=== PATIENT | female | born 1965 | race Caucasian/White ===

== ENCOUNTER → 2018-03-31 | Outpatient (CLI) | payer MEDICARE ==
--- NOTE | 2018-03-31 17:00 | CT ---
EXAMINATION TYPE: CT cervical spine wo con DATE OF EXAM: 03/31/2018 COMPARISON: 03/16/2008 HISTORY: Neck pain. CT DLP: 662 mGycm Automated exposure control for dose reduction was used. TECHNIQUE: CT scan of the cervical spine is obtained without contrast, axial images are obtained, sa gittal and coronal reformatted images are also reviewed. FINDINGS: There is some straightening of the lower cervical spine. There is narrowing of the disc spa jacky at C5-6 C6-7 with spurring of the endplates. Facet joints are intact. There is some facet hypertr ophic arthropathy at C3-4. The posterior elements are intact. Skull base is intact. IMPRESSION: Moderate spondylosis at C5-6 and C6-7. I do not see any significant spinal stenosis. No f racture. There is mild progression of the spur formation compared to old exam.
--- NOTE | 2018-03-31 17:03 | CT ---
EXAMINATION TYPE: CT lumbar spine wo con DATE OF EXAM: 03/31/2018 4:51 PM COMPARISON: 09/05/2007 HISTORY: Low back pain. Right leg numbness. CT DLP: 969 mGycm Automated exposure control for dose reduction was used. Unenhanced CT of the lumbar spine was performed. Bone and soft tissue window settings are submitted as well as coronal and sagittal reconstructions. The lumbar vertebra have fairly normal alignment. There is narrowing of disc spaces at L1-2 and L5-S1 with vacuum disc and spurring. There is a moderate posterior L1-2 disc herniation centrally and towa rds the right side. There is no compression fracture. Posterior elements are intact. I see no signifi cant narrowing of the spinal canal. There is developmentally adequate canal. There is no lumbar isiah janes mass. There is neural stimulator over the upper posterior lumbar spine. Visualized sacroiliac j oints appear intact. IMPRESSION: Spondylosis as above that has progressed at L5-S1 and fairly stable at L1-2 compared to old exam. No fracture seen. Chronic posterior right-sided L1-2 disc herniation. Small posterior L5-S1 disc herniat ion is appears slightly smaller than old exam.
== END | disposition home or self-care (01) ==
LOC: RADCTMAIN 16:21
PROVIDERS: ATTEND Psychiatry & Neurology Neurology
DX: M47.812 Spondylosis without myelopathy or radiculopathy, cervical region (principal); M51.27 Other intervertebral disc displacement, lumbosacral region; M47.817 Spondylosis without myelopathy or radiculopathy, lumbosacral region
CPT/HCPCS: 72125; 72131

== ENCOUNTER 2018-04-21 13:38 | Emergency (ER) | payer MEDICARE ==
[2018-04-21 13:51] VITALS: RESP 18
--- NOTE | 2018-04-21 15:04 | XR ---
EXAMINATION TYPE: XR Hip LT and AP Pelvis DATE OF EXAM: 04/21/2018 COMPARISON: NONE HISTORY: Pain in pelvis and left hip. TECHNIQUE: A single AP view of the pelvis is obtained. Two views of the left hip are obtained. FINDINGS: There is no acute fracture/dislocation evident in the pelvis. The sacroiliac joints appea r symmetric and unremarkable. There is mild axial joint space loss in both hips. Mild acetabular spur ring is present bilaterally. Stimulator device overlies left iliac crest. A few tiny left-sided pelvi c phleboliths are seen. Two views of left hip show no acute fracture or dislocation. No focal lytic or sclerotic lesion seen in the proximal left femur. The overlying soft tissue is unremarkable. IMPRESSION: There is no acute fracture or dislocation in the pelvis or left hip.
--- NOTE | 2018-04-21 15:34 | ED ---
General Adult HPI - General Chief complaint: Extremity Problem,Nontraumatic Stated complaint: feet swelling/leg pain Time Seen by Provider: 04/21/18 14:28 Source: patient, RN notes reviewed, old records reviewed Mode of arrival: EMS Limitations: no limitations - History of Present Illness Initial comments: This is a 52-year-old female to the ER for evaluation. The patient presents for evaluation of left hip Pain knee pain hamstring pain radiating into her back. Patient does suffer from chronic pain. States no modifying factors for symptoms, she woke with symptoms today. She also admits to mild swelling in her foot and ankle area. Denies trauma. No loss of bowel or bladder and no other injury - Related Data Home Medications Medication Instructions Recorded Confirmed Bbvtmkrkvs-HAA-Tnpqutm-Codeine 1 cap PO Q4H PRN 04/21/18 04/21/18 [Fiorinal w/Cod 06-825-91-30MG] Dextroamphetamine/Amphetamine 20 mg PO TID PRN 04/21/18 04/21/18 [Adderall] Ferrous Sulfate [Feosol] 325 mg PO DAILY 04/21/18 04/21/18 Ibuprofen [Motrin] 800 mg PO TID PRN 04/21/18 04/21/18 Omeprazole 20 mg PO BID PRN 04/21/18 04/21/18 PARoxetine [Paxil] 20 mg PO HS 04/21/18 04/21/18 oxyCODONE HCL/ACETAMINOPHEN 1 tab PO TID PRN 04/21/18 04/21/18 [Percocet 10-325 mg] Allergies Allergy/AdvReac Type Severity Reaction Status Date / Time dexamethasone [From Decadron] Allergy Unknown Verified 04/21/18 14:06 Sulfa (Sulfonamide Allergy Unknown Verified 04/21/18 14:06 Antibiotics) Review of Systems ROS Statement: Those systems with pertinent positive or pertinent negative responses have been documented in the HPI. ROS Other: All systems not noted in ROS Statement are negative. Past Medical History Past Medical History: COPD, GERD/Reflux Additional Past Medical History / Comment(s): chronic pain History of Any Multi-Drug Resistant Organisms: None Reported Past Surgical History: Back Surgery, Cholecystectomy Additional Past Surgical History / Comment(s): tongue Past Psychological History: No Psychological Hx Reported Smoking Status: Current every day smoker Past Alcohol Use History: None Reported Past Drug Use History: None Reported General Exam Limitations: no limitations General appearance: alert, in no apparent distress Head exam: Present: atraumatic, normocephalic, normal inspection Eye exam: Present: normal appearance, PERRL, EOMI. Absent: scleral icterus, conjunctival injection, periorbital swelling ENT exam: Present: normal exam, mucous membranes moist Neck exam: Present: normal inspection. Absent: tenderness, meningismus, lymphadenopathy Respiratory exam: Present: normal lung sounds bilaterally. Absent: respiratory distress, wheezes, rales, rhonchi, stridor Cardiovascular Exam: Present: regular rate, normal rhythm, normal heart sounds. Absent: systolic murmur, diastolic murmur, rubs, gallop, clicks GI/Abdominal exam: Present: soft, normal bowel sounds. Absent: distended, tenderness, guarding, rebound, rigid Extremities exam: Present: normal inspection, full ROM, normal capillary refill. Absent: tenderness, pedal edema, joint swelling, calf tenderness Back exam: Present: normal inspection Neurological exam: Present: alert, oriented X3, CN II-XII intact Psychiatric exam: Present: normal affect, normal mood Skin exam: Present: warm, dry, intact, normal color. Absent: rash Course Vital Signs 04/21/18 13:45 Temperature 99.3 F Pulse Rate 74 Respiratory 18 Rate Blood Pressure 111/55 O2 Sat by Pulse 95 Oximetry Medical Decision Making - Medical Decision Making 52 female positive left lower Shorty pain and swelling. Ultrasound and x-ray are negative. Patient does have pain medication home and can be discharged - Radiology Data Radiology results: report reviewed (xr left extremity negative for acute disease , ultrasound left lower extremity negative), image reviewed Disposition Clinical Impression: Left leg pain, Leg edema, left Disposition: HOME SELF-CARE Condition: Good Instructions: Leg Pain (ED) Is patient prescribed a controlled substance at d/c from ED?: No Referrals: Janessa Brambila MD [Primary Care Provider] - 1-2 days
--- NOTE | 2018-04-21 15:37 | US ---
EXAMINATION TYPE: US venous doppler duplex LE LT DATE OF EXAM: 04/21/2018 3:31 PM COMPARISON: NONE CLINICAL HISTORY: Pain. SIDE PERFORMED: Left TECHNIQUE: The lower extremity deep venous system is examined utilizing real time linear array sonog fred with graded compression, doppler sonography and color-flow sonography. VESSELS IMAGED: External Iliac Vein (EIV) Common Femoral Vein Deep Femoral Vein Greater Saphenous Vein * Femoral Vein Popliteal Vein Small Saphenous Vein * Proximal Calf Veins (* superficial vessels) Left Leg: Negative for DVT Grayscale, color doppler, spectral doppler imaging performed of the deep veins of the left lower extr emity. There is normal flow, compressibility, vascular waveforms. IMPRESSION: No ultrasound evidence for acute DVT in the left lower extremity.
[2018-04-21 16:10] VITALS: BP 116/62; PULSE 72; TEMP 98.9
== END 2018-04-21 16:10 | disposition home or self-care (01) ==
LOC: EC 13:38
DX: M79.605 Pain in left leg (principal); R60.0 Localized edema; M25.552 Pain in left hip; M25.562 Pain in left knee; G89.29 Other chronic pain; F17.200 Nicotine dependence, unspecified, uncomplicated; Z79.899 Other long term (current) drug therapy; Z88.2 Allergy status to sulfonamides; Z88.8 Allergy status to other drugs, medicaments and biological substances; Z98.890 Other specified postprocedural states
CPT/HCPCS: 73502; 99284

== ENCOUNTER 2018-10-04 13:41 | Emergency (ER) | payer MEDICARE ==
[2018-10-04 14:24] VITALS: RESP 18; TEMP 98.1
--- NOTE | 2018-10-04 14:24 | ED ---
General Adult HPI - General Stated complaint: DVT Time Seen by Provider: 10/04/18 13:45 Source: RN notes reviewed - History of Present Illness Initial comments: This is a 53-year-old female presents emergency Department complaining of right hip pain. 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 Patient denies any injury or trauma to that hip. Patient denies any previous symptoms that are similar. Patient denies any lower extremity pain on that side. Patient states she has a little bit of swelling to the lower leg. Patient denies any abdominal pain. Patient denies any back pain. Patient states the pain isn't there she stands on it or lays down flat if she goes to sit down or tries to stand up from a sitting position the pain is severe. - Related Data Home Medications Medication Instructions Recorded Confirmed Pugvjddouz-TEK-Luqcanb-Codeine 1 cap PO Q4H PRN 04/21/18 10/04/18 [Fiorinal w/Cod [id number]] Dextroamphetamine/Amphetamine 20 mg PO TID PRN 04/21/18 10/04/18 [Adderall] Omeprazole 20 mg PO BID PRN 04/21/18 10/04/18 PARoxetine [Paxil] 20 mg PO HS 04/21/18 10/04/18 oxyCODONE HCL/ACETAMINOPHEN 1 tab PO TID PRN 04/21/18 10/04/18 [Percocet 10-325 mg] Previous Rx's Medication Instructions Recorded Ketorolac [Toradol] 10 mg PO Q6HR #15 tab 10/04/18 Allergies Allergy/AdvReac Type Severity Reaction Status Date / Time dexamethasone [From Decadron] Allergy Unknown Verified 10/04/18 14:42 Sulfa (Sulfonamide Allergy Unknown Verified 10/04/18 14:42 Antibiotics) Review of Systems ROS Statement: Those systems with pertinent positive or pertinent negative responses have been documented in the HPI. ROS Other: All systems not noted in ROS Statement are negative. Past Medical History Past Medical History: COPD, GERD/Reflux Additional Past Medical History / Comment(s): chronic pain History of Any Multi-Drug Resistant Organisms: None Reported Past Surgical History: Back Surgery, Cholecystectomy Additional Past Surgical History / Comment(s): tongue Past Psychological History: No Psychological Hx Reported Smoking Status: Current every day smoker Past Alcohol Use History: None Reported Past Drug Use History: None Reported General Exam - General Exam Comments Initial Comments: GENERAL: Patient is well-developed and well-nourished. Patient is nontoxic and well- hydrated and is in mild distress. ENT: Neck is soft and supple. No significant lymphadenopathy is noted. Oropharynx is clear. Moist mucous membranes. Neck has full range of motion without eliciting any pain. EYES: The sclera were anicteric and conjunctiva were pink and moist. Extraocular movements were intact and pupils were equal round and reactive to light. Eyelids were unremarkable. PULMONARY: Unlabored respirations. Good breath sounds bilaterally. No audible rales rhonchi or wheezing was noted. CARDIOVASCULAR: There is a regular rate and rhythm without any murmurs gallops or rubs. ABDOMEN: Soft and nontender with normal bowel sounds. SKIN: Skin is clear with no lesions or rashes and otherwise unremarkable. NEUROLOGIC: Patient is alert and oriented x3. Cranial nerves II through XII are grossly intact. Motor and sensory are also intact. Normal speech, volume and content. Symmetrical smile. MUSCULOSKELETAL: Patient has no tenderness on palpation of the hip however when I try to flex the hip on the right or externally rotate the patient is excruciating pain. LYMPHATICS: No significant lymphadenopathy is noted PSYCHIATRIC: Normal psychiatric evaluation. Course Vital Signs 10/04/18 10/04/18 14:22 16:00 Temperature 98.1 F Pulse Rate 73 75 Respiratory 18 18 Rate Blood Pressure 111/61 113/64 O2 Sat by Pulse 98 97 Oximetry Medical Decision Making - Medical Decision Making Ultrasound showed no DVT. Hip and pelvis x-ray showed no acute injury or dislocation. Patient received Toradol in the emergency department and she was feeling considerably better and was able to get up and out of bed on her own though there was some still residual pain. Daughter stated that the patient ran out of her Percocet 2 days ago. Patient wants to go home at this time and follow-up with her pain doctor Dr. Moore - Lab Data Result diagrams: 10/04/18 14:10 10/04/18 14:10 Lab Results 10/04/18 10/04/18 Range/Units 14:10 14:10 WBC 10.7 H (3.8-10.6) k/uL RBC 5.24 (3.80-5.40) m/uL Hgb 13.4 (11.4-16.0) gm/dL Hct 42.3 (34.0-46.0) % MCV 80.7 (80.0-100.0) fL MCH 25.6 (25.0-35.0) pg MCHC 31.7 (31.0-37.0) g/dL RDW 17.2 H (11.5-15.5) % Plt Count 248 (150-450) k/uL Neutrophils % 72 % Lymphocytes % 17 % Monocytes % 6 % Eosinophils % 4 % Basophils % 0 % Neutrophils # 7.7 (1.3-7.7) k/uL Lymphocytes # 1.8 (1.0-4.8) k/uL Monocytes # 0.6 (0-1.0) k/uL Eosinophils # 0.4 (0-0.7) k/uL Basophils # 0.0 (0-0.2) k/uL Anisocytosis Slight Microcytosis Slight Sodium 138 (137-145) mmol/L Potassium 4.1 (3.5-5.1) mmol/L Chloride 104 (98-107) mmol/L Carbon Dioxide 27 (22-30) mmol/L Anion Gap 7 mmol/L BUN 13 (7-17) mg/dL Creatinine 0.64 (0.52-1.04) mg/dL Est GFR (CKD-EPI)AfAm >90 (>60 ml/min/1.73 sqM) Est GFR (CKD-EPI)NonAf >90 (>60 ml/min/1.73 sqM) Glucose 104 H (74-99) mg/dL Calcium 9.2 (8.4-10.2) mg/dL Total Bilirubin 0.3 (0.2-1.3) mg/dL AST 19 (14-36) U/L ALT 24 (9-52) U/L Alkaline Phosphatase 76 (38-126) U/L Total Protein 6.7 (6.3-8.2) g/dL Albumin 3.4 L (3.5-5.0) g/dL Disposition Clinical Impression: Right hip pain Disposition: HOME SELF-CARE Condition: Good Instructions: Hip Pain (ED) Prescriptions: Ketorolac [Toradol] 10 mg PO Q6HR #15 tab Is patient prescribed a controlled substance at d/c from ED?: No Referrals: Janessa Brambila MD [Primary Care Provider] - 1-2 days
[2018-10-04 14:36] LABS: Anisocytosis Slight; Basophils % (A) 0 %; Eosinophils # (A) 0.4 k/uL (0-0.7); Eosinophils % (A) 4 %; HCT 42.3 % (34.0-46.0); HGB 13.4 gm/dL (11.4-16.0); Lymphocytes # (A) 1.8 k/uL (1.0-4.8); Lymphocytes % (A) 17 %; MCH 25.6 pg (25.0-35.0); MCHC 31.7 g/dL (31.0-37.0); MCV 80.7 fL (80.0-100.0); Mean Platelet Volume 7.5; Microcytosis Slight; Monocytes # (A) 0.6 k/uL (0-1.0); Monocytes % (A) 6 %; Neutrophils # (A) 7.7 k/uL (1.3-7.7); Neutrophils % (A) 72 %; Platelet Count 248 k/uL (150-450); RBC 5.24 m/uL (3.80-5.40); RDW 17.2 % (11.5-15.5); WBC 10.7 k/uL (3.8-10.6)
--- NOTE | 2018-10-04 14:41 | XR ---
EXAMINATION TYPE: XR Hip RT and AP Pelvis DATE OF EXAM: 10/04/2018 CLINICAL HISTORY: Pelvic and right hip pain. TECHNIQUE: A single AP view of the pelvis is obtained. Two views of the right hip are obtained. COMPARISON: None. FINDINGS: There is no acute fracture/dislocation evident in the pelvis. The hip and sacroiliac joints appear s ymmetric and unremarkable. The overlying soft tissue appears unremarkable.Two views of right hip fiorella w no acute fracture or dislocation. No focal lytic or sclerotic lesion seen in the proximal right fe mur. The overlying soft tissue is unremarkable. IMPRESSION: There is no acute fracture or dislocation in the pelvis or right hip.
[2018-10-04 14:50] LABS: ALT 24 U/L (9-52); AST 19 U/L (14-36); Albumin 3.4 g/dL (3.5-5.0); Alkaline Phosphatase 76 U/L (38-126); Anion Gap 7 mmol/L; Blood Urea Nitrogen 13 mg/dL (7-17); Calcium 9.2 mg/dL (8.4-10.2); Carbon Dioxide 27 mmol/L (22-30); Chloride 104 mmol/L (98-107); Glucose 104 mg/dL (74-99); Potassium 4.1 mmol/L (3.5-5.1); Sodium 138 mmol/L (137-145); Total Bilirubin 0.3 mg/dL (0.2-1.3); Total Protein 6.7 g/dL (6.3-8.2)
--- NOTE | 2018-10-04 15:36 | US ---
EXAMINATION TYPE: US venous doppler duplex LE RT DATE OF EXAM: 10/04/2018 3:25 PM COMPARISON: NONE CLINICAL HISTORY: Pain. Right hip and leg pain. Patient scanned sitting at the side of the bed due to pain SIDE PERFORMED: Right TECHNIQUE: The lower extremity deep venous system is examined utilizing real time linear array sonog fred with graded compression, doppler sonography and color-flow sonography. VESSELS IMAGED: External Iliac Vein (EIV) Common Femoral Vein Deep Femoral Vein Greater Saphenous Vein * Femoral Vein Popliteal Vein Small Saphenous Vein * Proximal Calf Veins (* superficial vessels) Right Leg: Negative for DVT IMPRESSION: No evidence for DVT.
[2018-10-04] MEDS ORDERED: KETOROLAC 60 MG/2 ML VIAL IVP STA (15:45)
[2018-10-04] MEDS ORDERED: ONDANSETRON 4 MG/2 ML VIAL IVP STA (16:54)
[2018-10-04] MEDS ORDERED: HYDROmorphone 1 MG/ML 1 ML SYRINGE IVP STA (16:54)
[2018-10-04 18:14] VITALS: BP 115/67
[2018-10-04 18:22] VITALS: PULSE 74
== END 2018-10-04 18:32 | disposition home or self-care (01) ==
LOC: EC 13:41
DX: M25.551 Pain in right hip (principal); K21.9 Gastro-esophageal reflux disease without esophagitis; J44.9 Chronic obstructive pulmonary disease, unspecified; F17.200 Nicotine dependence, unspecified, uncomplicated; Z90.49 Acquired absence of other specified parts of digestive tract; Z79.899 Other long term (current) drug therapy; Z88.2 Allergy status to sulfonamides; Z88.8 Allergy status to other drugs, medicaments and biological substances
CPT/HCPCS: 99284; 96374; 96375 ×2; 36415; 80053; 85025; 73502; 93971; J2405; J1885; J1170

== ENCOUNTER 2024-04-28 08:56 | Day surgery (SDC) | payer MEDICARE ==
[2024-04-28 09:34] VITALS: TEMP 97.1
[2024-04-28] MEDS: LACTATED RINGERS 1,000 ML IV SCH (09:41)
[2024-04-28 09:44] LABS: Glucose,Whole Blood 179 mg/dL (70-110)
[2024-04-28] MEDS: IV FLUID CONTINUATION 1,000 ML IV ONE (09:54)
[2024-04-28] MEDS ORDERED: PROPOFOL 10 MG/ML 20 ML VIAL IV ONE (09:58)
--- NOTE | 2024-04-28 10:16 | P.PCN ---
Date of Procedure: 04/28/24 Procedure(s) Performed: BRIEF HISTORY: Patient is a 58-year-old pleasant white female scheduled for an elective colonoscopy as a part of screening for colon cancer/positive Cologuard. PROCEDURE PERFORMED: Colonoscopy with snare polypectomy. PREOPERATIVE DIAGNOSIS: Screening for colon cancer/positive Cologuard. IV sedation per Anesthesia. PROCEDURE: After informed consent was obtained, the patient, was brought into the endoscopy unit. IV sedation was administered by Anesthesia under continuous monitoring. Digital rectal examination was normal. Initially the Olympus CF-160 flexible video colonoscope was then inserted in the rectum, gradually advanced into the cecum without any difficulty. Careful examination was performed as the scope was gradually being withdrawn. Ileocecal valve and the appendiceal orifice were visualized and appeared normal. Prep was excellent. Mucosa of the cecum, appeared normal. In the ascending colon there was a 1 cm polyp that was removed by snare polypectomy. Rest of the ascending colon, transverse colon, descending colon, sigmoid colon, and rectum appeared normal. In the proximal rectum there was a 3 mm polyp that was removed by cold snare polypectomy. Retroflexion was performed in the rectum and no lesions were seen. The patient tolerated the procedure well. IMPRESSION: 1 cm ascending colon polyp status post polypectomy 3 mm rectal polyp status post polypectomy Rest of the colon appeared normal RECOMMENDATIONS: Findings of this examination were discussed with the patient as well as her family. She was advised to with the biopsy results. If the biopsy reveals adenoma she can have repeat colonoscopy 3 years.
[2024-04-28 10:36] VITALS: BP 112/76; PULSE 64; RESP 16
== END 2024-04-28 10:50 | disposition home or self-care (01) ==
LOC: ORWHC2ENDO 08:56
PROVIDERS: ATTEND Internal Medicine Gastroenterology
DX: D12.2 Benign neoplasm of ascending colon (principal); D12.8 Benign neoplasm of rectum; J44.9 Chronic obstructive pulmonary disease, unspecified; E78.5 Hyperlipidemia, unspecified; E11.9 Type 2 diabetes mellitus without complications; K21.9 Gastro-esophageal reflux disease without esophagitis; F17.210 Nicotine dependence, cigarettes, uncomplicated; Z88.2 Allergy status to sulfonamides; Z88.6 Allergy status to analgesic agent; Z79.84 Long term (current) use of oral hypoglycemic drugs; Z79.899 Other long term (current) drug therapy
CPT/HCPCS: 88305; 45385; J2704

== ENCOUNTER → 2024-10-30 | Outpatient (CLI) | payer MEDICARE, OTHER ==
[2024-10-30 17:44] LABS: African American GFR (CKD) >90 (>60 ml/min/1.73 sqM); Blood Urea Nitrogen 14 mg/dL (7-17); Non-African American GFR(CKD) 90 (>60 ml/min/1.73 sqM)
--- NOTE | 2024-10-30 20:09 | CT ---
EXAMINATION TYPE: CT angio head CT DLP: 1420 mGycm, Automated exposure control for dose reduction was used. DATE OF EXAM: 10/30/2024 6:44 PM COMPARISON: None.. CLINICAL INDICATION:Female, 59 years old with history of R42 DIZZINESS AND GIDDINESS; PHH, headaches and dizziness TECHNIQUE: CT angio head Axially acquired helical CT angiogram was obtained. Axial images are supplem ented with 3D reconstructions which were post-processed at an independent workstation. NASCET criteri a used. Contrast used:100 mL of Isovue 370 without and with IV Contrast, none Oral contrast used: none FINDINGS: No acute intracranial hemorrhage. Sulci are within normal limits. No midline shift. Orbital contents are within normal limits. Incidental note of a pineal gland calcification. Vertebral arteries: The vertebral arteries are patent. Vertebral artery dominance: The right vertebral artery is dominant. Basilar artery: The basilar artery is intact. The basilar artery bifurcation is normal. Internal Carotid arteries: The petrous, cavernous and supraclinoid segments are normal. ANISHA: Patent with no evidence of aneurysm. ACOM: Present without evidence of aneurysm. MCA: Patent with no evidence of aneurysm. 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 PCOM: Patent. Dural sinuses: Patent. IMPRESSION: No evidence of high-grade stenosis or intracranial aneurysm. [facility], , 10/30/2024 8:07 PM
== END | disposition home or self-care (01) ==
LOC: RADCTMAIN 17:09
PROVIDERS: ATTEND Psychiatry & Neurology Neurology
DX: R42 Dizziness and giddiness (principal); R51.9 Headache, unspecified
CPT/HCPCS: 82565; 84520; 70496; 36415; Q9967

== ENCOUNTER → 2025-03-05 | Outpatient (CLI) | payer MEDICARE, OTHER ==
[2025-03-05 13:39] LABS: African American GFR (CKD) >90 (>60 ml/min/1.73 sqM); Blood Urea Nitrogen 15 mg/dL (7-17); Non-African American GFR(CKD) 88 (>60 ml/min/1.73 sqM)
--- NOTE | 2025-03-05 14:53 | CT ---
EXAMINATION TYPE: CT lumbar spine wo/w con CT DLP: 3040.90 mGycm, Automated exposure control for dose reduction was used. DATE OF EXAM: 03/05/2025 2:42 PM COMPARISON: CT lumbar spine 03/31/2018. CLINICAL INDICATION:Female, 59 years old with history of M47.816 SPONDYLOSIS W/O MYELOPATHY OR RADIC Z96.89; PHH, Spondylosis w/o myelopathy or radiculopathy lumbar region, spinal cord stimulator status ., pain TECHNIQUE: Multiple axial images were obtained from the midportion of T11 through the sacroiliac kb nts before and after the uneventful administration of 100 mL of Isovue-370 intravenously. Soft tissu e and bone windows in coronal and sagittal planes were obtained and reviewed. Contrast used:100 mL of Isovue 300 with IV Contrast Oral contrast used: none. FINDINGS: Alignment: There are 5 lumbar type vertebral bodies within normal alignment. Bone: No evidence of fracture is identified. Left gluteal approach to spinal stimulator leads enteri ng the spinal canal at the T12-L1 interspinous space and coursing superiorly within the spinal canal and not included in the [id number]. The visualized portions of the leads appear unremarkable and i ntact. No abnormal contrast enhancement. Discs: T12-L1: Chronic tiny calcified central disc protrusion without effacement of anterior thecal sac. No significant central canal stenosis. No significant neural foraminal stenosis. L1-L2: Disc space narrowing with endplate sclerosis, vacuum disc disease and anterior osteophytosis. Chronic calcified right paracentral disc protrusion with minimal effacement of the anterior thecal sa c. No significant central canal stenosis. No neural foraminal stenosis. L2-L3: No spinal canal or neural foraminal stenosis is identified. L3-L4: No spinal canal or neural foraminal stenosis is identified. L4-L5: Broad-based disc bulge with minimal effacement of the anterior thecal sac. Ligamenta flavum bu ckling. No significant central canal stenosis. The left neural foramen is patent. Mild right neural f oraminal stenosis secondary to extension of the disc bulge. L5-S1: Disc space narrowing with endplate sclerosis, vacuum disc disease and anterior osteophytosis. Broad-based disc bulge with minimal effacement of the anterior thecal sac. No significant central can al stenosis. The left neural foramen is patent. Mild right neural foraminal stenosis. Pneumorachis at this level extending the disc along the posterior aspect of the L5 vertebral body. Other: Gallbladder is surgically absent. Mild atherosclerotic calcification of the aorta and its bran ches. IMPRESSION: 1. No evidence for spinal fracture. 2. Mild multilevel degenerative disc disease which is most pronounced at L1-L2 and L5-S1 as described above. 3. Visualized portions of the spinal stimulator leads appear intact. [facility], , 03/05/2025 2:50 PM
== END | disposition home or self-care (01) ==
LOC: RADCTMAIN 12:43
PROVIDERS: ATTEND Psychiatry & Neurology Neurology
DX: Z01.818 Encounter for other preprocedural examination (principal); M51.360 Other intervertebral disc degeneration, lumbar region with discogenic back pain only; M51.370 Other intervertebral disc degeneration, lumbosacral region with discogenic back pain only; M47.816 Spondylosis without myelopathy or radiculopathy, lumbar region; M99.73 Connective tissue and disc stenosis of intervertebral foramina of lumbar region; M51.26 Other intervertebral disc displacement, lumbar region; Z96.89 Presence of other specified functional implants
CPT/HCPCS: 82565; 84520; 72133; 36415; Q9967

== ENCOUNTER → 2025-04-27 | Outpatient (CLI) | payer MEDICARE, OTHER ==
--- NOTE | 2025-04-27 11:13 | CTL ---
EXAMINATION TYPE: CT Low Dose Lung DATE OF EXAM: 04/27/2025 11:06 AM COMPARISON: None. CLINICAL INDICATION: Female, 59 years old with history of Z87.891 hx tobacco dependence; pt no longer smokes, but did smoke 1.5 packs a day for 40 days, history of tobacco use. TECHNIQUE: Multiple axial non-contrast scans were obtained from approximately the lung apices through the upper abdomen. Coronal and sagittal reformatted images were obtained. Low dose technique was uti lized. MIP were created on a separate workstation and submitted for review. CT DLP: 97.2 mGycm, Automated exposure control for dose reduction was used. CT Contrast: Contrast used: None Oral contrast used: None FINDINGS: Lack of intravenous contrast and low dose technique limits the evaluation of the vascular and soft ti ssue structures. LUNGS: No evidence of pulmonary fibrosis. No evidence of focal consolidation, pneumothorax or pleural effusion. Centrilobular emphysema changes. Nodules: RUL: None. RML: None. RLL: None. AMARILIS: None. LLL: None. AIRWAY: Patent and unremarkable. HEART: Size within normal limits. No significant coronary artery calcifications. MEDIASTINUM: No gross evidence of adenopathy. VASCULATURE: No aortic aneurysm. MUSCULOSKELETAL: Mild disc degeneration changes are present throughout the thoracolumbar spine. There are stimulator leads terminate in the posterior thecal sac of the spine. SOFT TISSUES/LYMPH NODES: Unremarkable. LOWER NECK: No significant findings. UPPER ABDOMEN: The gallbladder surgically absent. IMPRESSION: 1. No clinically significant pulmonary nodules. 2. Mild emphysema. CT LUNG RAD AND CT CHEST RECOMMENDATION: Lung-Rad 2 Benign Appearance or Behavior: Continue annual sc reening with LDCT in 12 months. S Modifier (other clinically significant findings): None Recommend smoking cessation (if current smoker), or continuation of smoking cessation (if prior smoke r). Annual screening for lung cancer with low-dose computed tomography is recommended in adults ages 55 to 77 years who have a 30 pack-year smoking history and currently smoke or have quit within the pa st 15 years. Screening should be discontinued once a person has not smoked for 15 years or develops a health problem that substantially limits life expectancy or the ability or willingness to have curat devonte lung surgery. Lung rads 2021 [email or web address] [facility], , 04/27/2025 11:11 AM
== END | disposition home or self-care (01) ==
LOC: RADCTMAIN 10:47
PROVIDERS: ATTEND Family Medicine
DX: Z12.2 Encounter for screening for malignant neoplasm of respiratory organs (principal); J43.2 Centrilobular emphysema; Z87.891 Personal history of nicotine dependence
CPT/HCPCS: 71271